=== PATIENT | male | born 2000 ===

== ENCOUNTER 2018-01-31 16:37 | Emergency (ER) | payer MEDICAID, OTHER ==
[2018-01-31 16:56] VITALS: TEMP 98.3
[2018-01-31] MEDS ORDERED: Tdap Vaccine 0.5 ml Vial (10-64 yrs) IM ONE ×2 (17:02→17:50)
[2018-01-31] MEDS ORDERED: Oxycodone/Acetaminophen 5/325 mg Tab PO STA (17:02)
[2018-01-31] MEDS ORDERED: Oxycodone/Acetaminophen 5/325 mg Tab ONE (17:13)
[2018-01-31] MEDS ORDERED: Bacitracin 500 Units/gm Oint Foilpak UD ONE (17:52)
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
[2018-01-31 18:24] VITALS: BP 102/59; PULSE 77; RESP 15
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
[2018-02-09 11:48] VITALS: O2SAT 97
== END 2018-01-31 18:36 | disposition home or self-care (01) ==
LOC: C.ER 16:37
DX: S80.212A Abrasion, left knee, initial encounter (principal); Y08.89XA Assault by other specified means, initial encounter; Y92.9 Unspecified place or not applicable; Z23 Encounter for immunization